=== PATIENT | male | born 1975 | race Caucasian/White ===

== ENCOUNTER 2017-04-03 12:59 | Emergency (ER) | payer BC ==
[2017-04-03] MEDS ORDERED: Sodium Chloride 0.9% 10 ML Syringe FLUSH PRN ×2 (13:10→13:19)
[2017-04-03 13:13] VITALS: BP 136/89
[2017-04-03] MEDS ORDERED: HYDROmorphone 1 MG/ML Syringe IVPUSH ONE (13:13)
[2017-04-03] MEDS ORDERED: Lactated Ringers 1,000 ML IV SCH (13:15)
[2017-04-03] MEDS ORDERED: Iopamidol 612 MG/ML 150 ML Bottle IVPUSH ONE (13:19)
--- NOTE | 2017-04-03 13:19 | EDM.PDOC ---
ED HPI GENERAL MEDICAL PROBLEM - General Chief Complaint: Abdominal Pain Stated Complaint: FALL-RIB PAIN Time Seen by Provider: 04/03/17 13:07 Source of Information: Reports: Patient History Limitations: Reports: No Limitations - History of Present Illness INITIAL COMMENTS - FREE TEXT/NARRATIVE: The patient presents with left to mid chest pain and left upper quadrant pain after falling. He was putting in a septic tank and he miss stepped and fell and landed on his chest and upper abdomen. He did not hit his head or hurt his neck. He has shortness of breath with the pain. He has no arm or leg pain. He has no significant past medical history. Onset: Sudden Duration: Hour(s): Location: Reports: Chest, Abdomen Quality: Reports: Sharp Severity: Severe Improves with: Reports: None Worsens with: Reports: Breathing, Movement Context: Reports: Activity (He was at work and he fell) Associated Symptoms: Reports: Chest Pain, Shortness of Breath Upper Abdomen Pain Score (Numeric/FACES): 10 - Related Data Allergies Allergy/AdvReac Type Severity Reaction Status Date / Time Penicillins Allergy Hives Verified 04/03/17 13:25 Home Meds: Home Meds Hydrocodone/Acetaminophen [Hydrocodon-Acetaminophen 5-325] 1 - 2 each PO Q6HR PRN #20 tablet 04/03/17 [Rx] ED ROS GENERAL - Review of Systems Review Of Systems: See Below Constitutional: Reports: No Symptoms HEENT: Reports: No Symptoms Respiratory: Reports: Shortness of Breath Cardiovascular: Reports: Chest Pain (Mid to left chest) Endocrine: Reports: No Symptoms GI/Abdominal: Reports: Abdominal Pain. Denies: Nausea, Vomiting : Reports: No Symptoms Musculoskeletal: Reports: No Symptoms ED EXAM, GI/ABD - Physical Exam Exam: See Below Exam Limited By: No Limitations General Appearance: Alert, No Apparent Distress Ears: Normal External Exam Nose: Normal Inspection Head: Atraumatic, Normocephalic Neck: Normal Inspection Respiratory/Chest: No Respiratory Distress, Lungs Clear, Normal Breath Sounds, Other (Pain upon palpation to the mid to left chest. No crepitous noted and no ecchymosis.) Cardiovascular: Regular Rate, Rhythm, No Edema, No Murmur GI/Abdominal Exam: Soft, No Organomegaly, No Mass, Tender (Moderate to the left upper quadrant) Extremities: Normal Inspection Course - Vital Signs Last Recorded V/S: Last Vital Signs Temp 97.9 F 04/03/17 13:11 Pulse 66 04/03/17 13:11 Resp 40 H 04/03/17 13:11 BP 136/89 04/03/17 13:11 Pulse Ox 100 04/03/17 13:11 - Orders/Labs/Meds Orders: Active Orders 24 hr Category Date Time Status Cardiac Monitoring [RC] . DIRECTED Care 04/03/17 13:10 Active EKG Documentation Completion [RC] STAT Care 04/03/17 13:12 Active Peripheral IV Care [RC] . DIRECTED Care 04/03/17 13:12 Active UA W/MICROSCOPIC [URIN] Stat Lab 04/03/17 13:10 Ordered Lactated Ringers [Ringers, Lactated] 1,000 ml Med 04/03/17 13:15 Active IV ASDIRECTED Sodium Chloride 0.9% [Saline Flush] Med 04/03/17 13:10 Active 10 ml FLUSH ASDIRECTED PRN Sodium Chloride 0.9% [Saline Flush] Med 04/03/17 13:19 Active 10 ml FLUSH ONETIME PRN Peripheral IV Insertion Adult [OM.PC] Stat Oth 04/03/17 13:10 Ordered Medication Orders Lactated Ringer's (Ringers, Lactated) 1,000 mls @ 125 mls/hr IV ASDIRECTED STACEY Last Admin: 04/03/17 13:35 Dose: 125 mls/hr Sodium Chloride (Saline Flush) 10 ml FLUSH ASDIRECTED PRN PRN Reason: Keep Vein Open Last Admin: 04/03/17 13:38 Dose: 10 ml Sodium Chloride (Saline Flush) 10 ml FLUSH ONETIME PRN PRN Reason: IV FLUSH Last Admin: 04/03/17 13:50 Dose: 10 ml Labs: Laboratory Tests 04/03/17 04/03/17 Range/Units 13:37 13:37 WBC 15.21 H (4.23-9.07) K/mm3 RBC 4.89 (4.63-6.08) M/mm3 Hgb 14.5 (13.7-17.5) gm/L Hct 42.3 (40.1-51.0) % MCV 86.5 (79.0-92.2) fl MCH 29.7 (25.7-32.2) pg MCHC 34.3 (32.2-35.5) g/dl RDW Std Deviation 41.2 (35.1-43.9) fL Plt Count 266 (163-337) K/mm3 MPV 9.5 (9.4-12.3) fl Neut % (Auto) 75.1 H (34.0-67.9) % Lymph % (Auto) 15.8 L (21.8-53.1) % Coal % (Auto) 7.9 (5.3-12.2) % Eos % (Auto) 0.7 L (0.8-7.0) Baso % (Auto) 0.2 (0.1-1.2) % Neut # (Auto) 11.41 H (1.78-5.38) K/mm3 Lymph # (Auto) 2.41 (1.32-3.57) K/mm3 Coal # (Auto) 1.20 H (0.30-0.82) K/mm3 Eos # (Auto) 0.11 (0.04-0.54) K/mm3 Baso # (Auto) 0.03 (0.01-0.08) K/mm3 Sodium 140 (136-145) mEq/L Potassium 4.7 (3.5-5.1) mEq/L Chloride 103 (98-107) mEq/L Carbon Dioxide 24 (21-32) mEq/L Anion Gap 17.7 H (5-15) BUN 25 H (7-18) mg/dL Creatinine 0.9 (0.7-1.3) mg/dL Est Cr Clr Drug Dosing 113.78 mL/min Estimated GFR (MDRD) > 60 (>60) mL/min BUN/Creatinine Ratio 27.8 H (14-18) Glucose 86 (74-106) mg/dL Calcium 9.3 (8.5-10.1) mg/dL Total Bilirubin 0.4 (0.2-1.0) mg/dL AST 31 (15-37) U/L ALT 26 (16-63) U/L Alkaline Phosphatase 52 (46-116) U/L Total Protein 7.5 (6.4-8.2) g/dl Albumin 4.1 (3.4-5.0) g/dl Globulin 3.4 gm/dL Albumin/Globulin Ratio 1.2 (1-2) Lipase 163 (73-393) U/L Meds: Medications Generic Name Dose Route Start Last Admin Trade Name Freq PRN Reason Stop Dose Admin Lactated Ringer's 1,000 mls @ 125 mls/hr 04/03/17 13:15 04/03/17 13:35 Ringers, Lactated IV 125 mls/hr ASDIRECTED STACEY Administration Sodium Chloride 10 ml 04/03/17 13:10 04/03/17 13:38 Saline Flush FLUSH 10 ml ASDIRECTED PRN Administration Keep Vein Open Sodium Chloride 10 ml 04/03/17 13:19 04/03/17 13:50 Saline Flush FLUSH 10 ml ONETIME PRN Administration IV FLUSH Discontinued Medications Generic Name Dose Route Start Last Admin Trade Name Freq PRN Reason Stop Dose Admin Hydromorphone HCl 1 mg 04/03/17 13:13 04/03/17 13:36 Dilaudid IVPUSH 04/03/17 13:14 1 mg ONETIME ONE Administration Iopamidol 125 ml 04/03/17 13:19 04/03/17 13:50 Isovue-300 (61%) IVPUSH 04/03/17 13:20 125 ml ONETIME ONE Administration - Re-Assessments/Exams Free Text/Narrative Re-Assessment/Exam: 04/03/17 13:21 I ordered an IV LR, labs, UA CT of his chest, abdomen and pelvis and dilaudid 1mg IV. 04/03/17 15:11 His WBC was elevated at 15.21. His anion gap was elevated at 17.7. His BUN was elevated at 25. His liver enzymes and lipase were negative. His CT of his chest shows incidental findings, nothing acute is seen. The CT of his abdomen and pelvis shows incidental findings. Nothing acute is appreciated on CT study of the abdomen and pelvis. Departure - Departure Time of Disposition: 15:15 Disposition: Home, Self-Care 01 Condition: Good Clinical Impression: Costochondritis, acute Fall Qualifiers: Encounter type: initial encounter Qualified Code(s): W19.XXXA - Unspecified fall, initial encounter Chest wall contusion Qualifiers: Encounter type: initial encounter Laterality: left Qualified Code(s): S20.212A - Contusion of left front wall of thorax, initial encounter - Discharge Information Prescriptions: Hydrocodone/Acetaminophen [Hydrocodon-Acetaminophen 5-325] 1 - 2 each PO Q6HR PRN #20 tablet PRN Reason: Pain Referrals: Juan R Spangler Jr, MD [Primary Care Provider] - 1 Week (If not better.) Forms: ED Department Discharge Additional Instructions: Take the hydrocodone as needed for pain and you can take an antiinflammatory such as motrin or aleve. Ice the areas that hurt. Avoid heavy lifting for 5 days. Please return if you are worse. - My Orders Last 24 Hours: My Active Orders 04/03/17 13:10 Cardiac Monitoring [RC] . DIRECTED UA W/MICROSCOPIC [URIN] Stat Sodium Chloride 0.9% [Saline Flush] 10 ml FLUSH ASDIRECTED PRN Peripheral IV Insertion Adult [OM.PC] Stat 04/03/17 13:12 EKG Documentation Completion [RC] STAT Peripheral IV Care [RC] . DIRECTED 04/03/17 13:15 Lactated Ringers [Ringers, Lactated] 1,000 ml IV ASDIRECTED 04/03/17 13:19 Sodium Chloride 0.9% [Saline Flush] 10 ml FLUSH ONETIME PRN - Assessment/Plan Last 24 Hours: My Active Orders 04/03/17 13:10 Cardiac Monitoring [RC] . DIRECTED UA W/MICROSCOPIC [URIN] Stat Sodium Chloride 0.9% [Saline Flush] 10 ml FLUSH ASDIRECTED PRN Peripheral IV Insertion Adult [OM.PC] Stat 04/03/17 13:12 EKG Documentation Completion [RC] STAT Peripheral IV Care [RC] . DIRECTED 04/03/17 13:15 Lactated Ringers [Ringers, Lactated] 1,000 ml IV ASDIRECTED 04/03/17 13:19 Sodium Chloride 0.9% [Saline Flush] 10 ml FLUSH ONETIME PRN
--- NOTE | 2017-04-03 14:25 | CT ---
1. CT chest Technique: Multiple axial sections through the chest were obtained. Intravenous contrast was utilized. Findings: Mediastinum and hilar region show no adenopathy or mass. Several small calcified mediastinal lymph nodes are seen. No pericardial thickening is seen. Calcified granuloma is noted within the right lung base. Small subpleural nodule is identified within the right upper lung measuring about 1.5 mm which is most likely due to an additional granuloma. Lungs otherwise are clear. No acute pulmonary densities are seen. No pleural effusions or pneumothorax is seen. Bone window settings were reviewed which shows no acute osseous abnormality. Impression: 1. Incidental findings. Nothing acute is seen. Diagnostic code #2 CT abdomen and pelvis Technique: Multiple axial sections were obtained from above the dome of the diaphragm inferiorly through the pubic symphysis. Intravenous contrast was utilized. No oral contrast has been given. Findings: Liver shows no focal abnormality. Spleen shows several calcified granulomas. Spleen is otherwise unremarkable. Adrenal glands show no nodule. Pancreas is within normal limits. No calcified gallstones are seen. Kidneys show symmetric contrast enhancement and appear unremarkable. Aorta shows no aneurysmal dilatation. No retroperitoneal adenopathy is seen. No mesenteric abnormalities are seen. No pelvic mass or adenopathy is seen. Delayed images shows contrast within the bladder. Bone window settings were reviewed which shows mild degenerative change. 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 Impression: 1. Incidental findings. Nothing acute is appreciated on CT study of the abdomen and pelvis. Diagnostic code #2
== END 2017-04-03 15:45 | disposition home or self-care (01) ==
LOC: JD.ED 12:59
DX: S20.212A Contusion of left front wall of thorax, initial encounter (principal); M94.0 Chondrocostal junction syndrome [Tietze]; Z88.0 Allergy status to penicillin; W01.198A Fall on same level from slipping, tripping and stumbling with subsequent striking against other object, initial encounter
CPT/HCPCS: 36415; 71260; 74177; 80053; 81001; 83690; 85025; 93005; 96361; 96374; 99285; J1170; J7050; J7120; Q9967; 99284

== ENCOUNTER 2022-11-16 17:39 | Emergency (ER) | payer BC ==
[2022-11-16 19:20] VITALS: BP 124/74; PULSE 70
== END 2022-11-16 19:20 | disposition home or self-care (01) ==
LOC: JD.ED 17:39
DX: S70.11XA Contusion of right thigh, initial encounter (principal); Z88.0 Allergy status to penicillin; W55.22XA Struck by cow, initial encounter
CPT/HCPCS: 73552-26-RT; 73552-RT; 99283